=== PATIENT | female | born 1955 | race Caucasian/White ===

== ENCOUNTER 2017-03-01 12:09 | Observation (INO) | payer OTHER ==
[2017-03-01] MEDS ORDERED: FEVERALL 650 MG PR PRN (13:12)
[2017-03-01] MEDS ORDERED: Sodium Chloride 0.9% 1000 ML 1,000 ML IV STA (13:12)
[2017-03-01] MEDS ORDERED: TRAMADOL HCL 100 MG PO PRN (13:20)
[2017-03-01] MEDS ORDERED: LEVALBUTEROL TARTRATE IH PRN (13:20)
[2017-03-01] MEDS ORDERED: INSULIN GLARGINE HUM REC ANLOG 100 UNIT SQ SCH (13:30)
[2017-03-01] MEDS ORDERED: Xopenex 1.25 MG/0.5 ML UD NEBULE IH PRN (13:32)
[2017-03-01] MEDS ORDERED: ULTRAM 50 MG PO PRN (13:33)
[2017-03-01] MEDS: Sodium Chloride 0.9% 1000 ML 1,000 ML IV SCH ×2 (13:41→23:36)
[2017-03-01 14:19] LABS: Mean Cell Volume 89.8 fl (78-100); Mean Corpuscular Hemoglobin 28.7 pg (26-32); Mean Platelet Volume 11.2 fl (6-9.5); Platelet Count 267 K/mm3 (150-450); Red Cell Distribution Width 13.7 % (11.5-14.0); White Blood Count 9.1 K/mm3 (4.0-10.5)
[2017-03-01 14:40] LABS: BAND 5 % (0.0-2.0); Eosinophil 1 % (0.00-3.0); Metamyelocyte 1 %; Total Cells Counted 100
[2017-03-01 14:42] LABS: ANISOCYTOSIS 1+; Macrocytosis 1+; Platelet Estimate NORMAL (NORMAL); Polychromasia 1+
[2017-03-01 15:00] LABS: ALBUMIN 3.2 g/dL (3.4-5.0); ANION GAP 12.4 MEQ/L (5-15); BILIRUBIN,TOTAL 0.3 mg/dL (0.2-1.0); Carbon Dioxide 28.4 mEq/L (21-32); Potassium 4.5 mEq/L (3.5-5.1); Total Protein 7.4 gm/dL (6.4-8.2)
[2017-03-01] MEDS: ROCEPHIN 1 Gm-D5w 50 ml Bag** 1 G/50 ML IVPB IV SCH (15:20)
[2017-03-01] MEDS ORDERED: Sodium Chloride 3 ML UD NEBULES IH ONE (17:12)
[2017-03-01] MEDS: NovoLIN R SQ SCH (17:20)
[2017-03-01] MEDS: NovoLOG Insulin SQ PRN ×2 (17:20→22:13)
[2017-03-01] MEDS: Aldactone 25 MG PO SCH (17:20)
[2017-03-01] MEDS: Xopenex 1.25 MG/0.5 ML UD NEBULE IH PRN ×3 (17:21→23:05)
[2017-03-01 17:57] LABS: Bilirubin NEGATIVE (NEGATIVE); Blood TRACE NON-HEM Ery/ul (0-5); Collection Type CCMS; Glucose 1000 mg/dL (NEGATIVE); Leukocyte Esterase NEGATIVE (NEGATIVE)
[2017-03-01 17:58] LABS: Bacteria MODERATE /HPF (NEGATIVE); COMPLETE URINE MICROSCOPIC? YES; Epithelial Cells RARE /HPF (FEW); WBC 0-2 /HPF (0-5)
[2017-03-01] MEDS ORDERED: Ativan 1 MG PO PRN (19:08)
[2017-03-01] MEDS ORDERED: Lantus Insulin SQ SCH (22:00)
[2017-03-01] MEDS: LIPITOR 40MG PO SCH (22:02)
[2017-03-01] MEDS: Lantus Insulin SQ SCH (22:02)
[2017-03-01] MEDS: ceLEXa 20 MG PO SCH (22:12)
[2017-03-01] MEDS: Ambien 10 MG PO SCH (23:34)
[2017-03-02] MEDS ORDERED: Zestril 10 MG*** 10 MG, hydroDIURIL 25 MG*** 12.5 MG PO ONE ×4 (01:04→01:10)
[2017-03-02] MEDS ORDERED: Zestril 10 MG ONE (01:15)
[2017-03-02] MEDS ORDERED: hydroDIURIL 25 MG ONE (01:15)
[2017-03-02] MEDS: Xopenex 1.25 MG/0.5 ML UD NEBULE IH PRN ×5 (03:00→18:41)
[2017-03-02] MEDS: Sodium Chloride 3 ML UD NEBULES IH PRN ×5 (03:00→18:41)
[2017-03-02] MEDS ORDERED: Lantus Insulin SQ SCH ×2 (08:00→10:00)
[2017-03-02] MEDS ORDERED: Lantus Insulin ONE (08:07)
[2017-03-02] MEDS: NovoLIN R SQ SCH ×3 (08:08→17:01)
[2017-03-02] MEDS: ROCEPHIN 1 Gm-D5w 50 ml Bag** 1 G/50 ML IVPB IV SCH (09:46)
[2017-03-02] MEDS: Aldactone 25 MG PO SCH ×2 (09:47→17:01)
[2017-03-02] MEDS ORDERED: ZESTRIL PO SCH ×2 (10:00)
[2017-03-02] MEDS ORDERED: NON-FORMULARY ITEM (Citalopram Hydrobromide [Celexa] 40 MG) PO SCH (10:00)
[2017-03-02] MEDS ORDERED: HYDRODIURIL PO SCH ×2 (10:00)
[2017-03-02] MEDS: Sodium Chloride 0.9% 1000 ML 1,000 ML IV SCH (11:41)
[2017-03-02] MEDS: NovoLOG Insulin SQ PRN ×3 (12:19→22:34)
--- NOTE | 2017-03-02 12:21 | PCM.NOTE ---
Date and Time: 03/02/17 1220 Subjective Assessment: doing better - Review of Systems Constitutional: No Fever, No Chills Eyes: No Symptoms Ears, Nose, & Throat: No Symptoms Respiratory: No Cough, No Short Of Breath Cardiac: No Chest Pain, No Edema, No Syncope Abdominal/Gastrointestinal: No Abdominal Pain, No Nausea, No Vomiting, No Diarrhea Genitourinary Symptoms: No Dysuria Musculoskeletal: No Back Pain, No Neck Pain Skin: No Rash Neurological: No Dizziness, No Focal Weakness, No Sensory Changes Psychological: No Symptoms Endocrine: No Symptoms Hematologic/Lymphatic: No Symptoms Immunological/Allergic: No Symptoms Objective Exam General Appearance: no apparent distress, alert Neurologic Exam: alert, oriented x 3, cooperative, normal mood/affect, nml cerebellar function, sensation nml, No motor deficits Skin Exam: normal color, warm, dry Eye Exam: PERRL, EOMI, eyes nml inspection Ears, Nose, Throat Exam: normal ENT inspection, pharynx normal, moist mucous membranes Neck Exam: normal inspection, non-tender, supple, full range of motion Respiratory Exam: normal breath sounds, lungs clear, No respiratory distress Cardiovascular Exam: regular rate/rhythm, normal heart sounds Gastrointestinal/Abdomen Exam: soft, No tenderness, No mass Extremity Exam: normal inspection, normal range of motion Back Exam: normal inspection, normal range of motion, No CVA tenderness, No vertebral tenderness Pelvic Exam: deferred Rectal Exam: deferred OBJECTIVE DATA Vital Signs: Vital Signs - 24 hr Temp Pulse Resp BP Pulse Ox 03/02/17 11:56 98.3 F 91 H 22 164/76 94 L 03/02/17 11:00 84 18 90 L 03/02/17 07:34 99 F 79 20 142/69 95 03/02/17 06:55 78 18 93 L 03/02/17 04:00 98.0 F 80 21 162/70 93 L 03/02/17 03:00 80 21 93 L 03/02/17 00:00 97.7 F 82 22 200/81 94 L 03/01/17 23:00 75 24 95 03/01/17 19:41 75 24 95 03/01/17 19:38 99.3 F 94 H 26 H 146/75 95 03/01/17 16:40 98 F 90 20 136/65 92 L 03/01/17 16:00 102 H 38 H 95 03/01/17 15:06 99.3 F 68 20 143/61 03/01/17 14:14 68 20 94 L 03/01/17 13:00 99.3 F 88 143/61 03/01/17 12:40 99.3 F 88 18 143/61 95 Oxygen-Last 24 hours O2 Percentage 5 Liters = 40% O2 Percentage 5 Liters = 40% O2 Percentage 2 Liters = 28% O2 Percentage 2 Liters = 28% Intake and Output: Intake & Output 02/28/17 03/01/17 03/02/17 03/03/17 11:59 11:59 11:59 11:59 Intake Total 3334 Output Total 950 Balance 2384 Weight 125.645 kg Lab Results: Accuchecks Date 03/02/17 Date 03/02/17 Time 07:30 Time 22:00 Accucheck Value: 178 Accucheck Value: 308 Accucheck Value: 344 Lab Results-Last 24 Hours 03/01/17 03/01/17 03/01/17 Range/Units 14:00 14:05 14:05 WBC 9.1 (4.0-10.5) K/mm3 RBC 4.60 (4.1-5.4) M/mm3 Hgb 13.2 (12.0-16.0) gm/dl Hct 41.3 (35-47) % MCV 89.8 (78-100) fl MCH 28.7 (26-32) pg MCHC 32.0 (32-36) g/dl RDW 13.7 (11.5-14.0) % Plt Count 267 (150-450) K/mm3 MPV 11.2 H (6-9.5) fl Segmented Neutrophils 72 H (36.0-66.0) % Band Neutrophils 5 H (0.0-2.0) % Lymphocytes (Manual) 14 L (24-44) % Monocytes (Manual) 7 (0.0-12.0) % Eosinophils (Manual) 1 (0.00-3.0) % Metamyelocytes 1 % Differential Comment ABNORMAL Platelet Estimate NORMAL (NORMAL) Polychromasia 1+ Anisocytosis 1+ Macrocytosis 1+ Sodium 136 (136-145) mEq/L Potassium 4.5 (3.5-5.1) mEq/L Chloride 100 (98-107) mEq/L Carbon Dioxide 28.4 (21-32) mEq/L Anion Gap 12.4 (5-15) MEQ/L BUN 16 (9-20) mg/dL Creatinine 1.06 (0.55-1.30) mg/dl Estimated GFR 56 ML/MIN Glucose 249 H (70-110) MG/DL Hemoglobin A1c 8.2 H (4.5-6.2) Calcium 8.9 (8.5-10.1) mg/dL Total Bilirubin 0.30 (0.2-1.0) mg/dL AST 18 (15-37) U/L ALT 19 (12-78) U/L Alkaline Phosphatase 157 H (46-116) U/L NT-Pro-B Natriuret Pep 124 (0-125) pg/ml Serum Total Protein 7.4 (6.4-8.2) gm/dL Albumin 3.2 L (3.4-5.0) g/dL Ur Collection Type Urine Color (YELLOW) Urine Appearance (CLEAR) Urine pH (5-6) Ur Specific [place] (1.005-1.025) Urine Protein (Negative) Urine Ketones (NEGATIVE) Urine Blood (0-5) Barrett/ul Urine Nitrite (NEGATIVE) Urine Bilirubin (NEGATIVE) Urine Urobilinogen (0-1) mg/dL Ur Leukocyte Esterase (NEGATIVE) Urine Microscopic WBC (0-5) /HPF Ur Epithelial Cells (FEW) /HPF Urine Bacteria (NEGATIVE) /HPF Urine Glucose (NEGATIVE) mg/dL Specimen Received 03/01/17 Range/Units 17:41 WBC (4.0-10.5) K/mm3 RBC (4.1-5.4) M/mm3 Hgb (12.0-16.0) gm/dl Hct (35-47) % MCV (78-100) fl MCH (26-32) pg MCHC (32-36) g/dl RDW (11.5-14.0) % Plt Count (150-450) K/mm3 MPV (6-9.5) fl Segmented Neutrophils (36.0-66.0) % Band Neutrophils (0.0-2.0) % Lymphocytes (Manual) (24-44) % Monocytes (Manual) (0.0-12.0) % Eosinophils (Manual) (0.00-3.0) % Metamyelocytes % Differential Comment Platelet Estimate (NORMAL) Polychromasia Anisocytosis Macrocytosis Sodium (136-145) mEq/L Potassium (3.5-5.1) mEq/L Chloride (98-107) mEq/L Carbon Dioxide (21-32) mEq/L Anion Gap (5-15) MEQ/L BUN (9-20) mg/dL Creatinine (0.55-1.30) mg/dl Estimated GFR ML/MIN Glucose (70-110) MG/DL Hemoglobin A1c (4.5-6.2) Calcium (8.5-10.1) mg/dL Total Bilirubin (0.2-1.0) mg/dL AST (15-37) U/L ALT (12-78) U/L Alkaline Phosphatase (46-116) U/L NT-Pro-B Natriuret Pep (0-125) pg/ml Serum Total Protein (6.4-8.2) gm/dL Albumin (3.4-5.0) g/dL Ur Collection Type CCMS Urine Color YELLOW (YELLOW) Urine Appearance CLEAR (CLEAR) Urine pH 5.0 (5-6) Ur Specific [place] 1.010 (1.005-1.025) Urine Protein NEGATIVE (Negative) Urine Ketones NEGATIVE (NEGATIVE) Urine Blood TRACE NON-HEM (0-5) Barrett/ul Urine Nitrite POSITIVE (NEGATIVE) Urine Bilirubin NEGATIVE (NEGATIVE) Urine Urobilinogen NORMAL (0-1) mg/dL Ur Leukocyte Esterase NEGATIVE (NEGATIVE) Urine Microscopic WBC 0-2 (0-5) /HPF Ur Epithelial Cells RARE (FEW) /HPF Urine Bacteria MODERATE (NEGATIVE) /HPF Urine Glucose 1000 (NEGATIVE) mg/dL Specimen Received 03-01-17 2577 Assessment/Plan (1) Acute exacerbation of chronic bronchitis Current Visit: Yes Status: Acute Code(s): J20.9 - ACUTE BRONCHITIS, UNSPECIFIED; J42 - UNSPECIFIED CHRONIC BRONCHITIS (2) Type 2 diabetes mellitus treated with insulin Current Visit: Yes Status: Chronic Code(s): E11.9 - TYPE 2 DIABETES MELLITUS WITHOUT COMPLICATIONS; Z79.4 - SNF (CURRENT) USE OF INSULIN (3) Diabetic neuropathic arthropathy Current Visit: Yes Status: Chronic Code(s): E11.610 - TYPE 2 DIABETES MELLITUS W DIABETIC NEUROPATHIC ARTHROPATHY
[2017-03-02] MEDS: Lantus Insulin SQ SCH (22:35)
[2017-03-02] MEDS: ceLEXa 20 MG PO SCH (23:03)
[2017-03-03] MEDS: Ambien 10 MG PO SCH (01:02)
[2017-03-03] MEDS: LIPITOR 40MG PO SCH (01:14)
[2017-03-03 06:20] VITALS: BP 148/66; PULSE 77; O2SAT 91
== END 2017-03-03 07:45 | disposition home or self-care (01) ==
LOC: MED SURG 12:38
PROVIDERS: ADMIT General Practice; ATTEND General Practice
DX: J20.9 Acute bronchitis, unspecified (principal); E11.65 Type 2 diabetes mellitus with hyperglycemia; E11.40 Type 2 diabetes mellitus with diabetic neuropathy, unspecified; C32.9 Malignant neoplasm of larynx, unspecified; J45.909 Unspecified asthma, uncomplicated; I10 Essential (primary) hypertension; Z79.899 Other long term (current) drug therapy
CPT/HCPCS: 36415; 80053; 81000; 82962; 83036; 83880; 85025; 87040; 94640; 94760; G0378; J0696; A9270-GY